=== PATIENT | female | born 1940 | race Caucasian/White ===

== ENCOUNTER 2017-01-30 12:25 | Emergency (ER) | payer MEDICARE, OTHER ==
[~2017-01-30] VITALS: Ht 167.6 cm; Wt 63.5 kg
[2017-01-30] MEDS ORDERED: IMDUR SA30 MG PO (12:53)
[2017-01-30] MEDS ORDERED: ESCITALOPRAM OX10 MG PO (12:53)
[2017-01-30] MEDS ORDERED: ATORVASTATIN CA10 M1 PO (12:53)
== END 2017-01-30 14:25 | disposition home or self-care (01) ==
LOC: ED 12:25
DX: S63.502A Unspecified sprain of left wrist, initial encounter (principal); Z88.2 Allergy status to sulfonamides; Z79.899 Other long term (current) drug therapy; X58.XXXA Exposure to other specified factors, initial encounter; Y93.89 Activity, other specified; Y92.89 Other specified places as the place of occurrence of the external cause; Y99.8 Other external cause status

== ENCOUNTER 2025-08-03 11:45 | Emergency (ER) | payer MEDICARE ==
[~2025-08-03] VITALS: Ht 160 cm; Wt 54.4 kg
[~2025-08-03 11:45] MED LIST: ATORVASTATIN CA10 M1 PO; ESCITALOPRAM OX10 MG PO; IMDUR SA30 MG PO
[2025-08-03] MEDS ORDERED: IBUPROFEN 800 MG TAB PO ONE (13:05)
[2025-08-03] MEDS ORDERED: MELOXICAM7.5 MG PO (14:45)
== END 2025-08-03 14:55 | disposition home or self-care (01) ==
LOC: ED 11:45
DX: S63.501A Unspecified sprain of right wrist, initial encounter (principal); Z88.2 Allergy status to sulfonamides; X58.XXXA Exposure to other specified factors, initial encounter; Y93.89 Activity, other specified; Y92.89 Other specified places as the place of occurrence of the external cause; Y99.8 Other external cause status